=== PATIENT | female | born 1975 | race Native Hawaiian/Other Pacific Islander ===

== ENCOUNTER 2017-01-03 22:01 | Emergency (ER) | payer BC ==
[2017-01-03 23:32] LABS: Basophils % (Auto) 0.3 % (0.0-1.8); Eosinophils % (Auto) 0.3 % (0.0-4.3); Hematocrit 46.4 % (30.3-42.9); Hemoglobin 15.3 gm/dl (10.1-14.3); Mean Corpuscular HGB Conc 33 % (30-34); Mean Corpuscular Hemoglobin 30 pg (28-32); Mean Corpuscular Volume 90 fl (79-97); Platelet Count 137 K/mm3 (140-440); Red Blood Count 5.18 M/mm3 (3.65-5.03); Red Cell Distribution Width 14.1 % (13.2-15.2); White Blood Count 10.2 K/mm3 (4.5-11.0)
[2017-01-03 23:41] LABS: Anion Gap 21 mmol/L; Blood Urea Nitrogen 15 mg/dL (7-17); Calcium 9.1 mg/dL (8.4-10.2); Carbon Dioxide 21 mmol/L (22-30); Chloride 98.9 mmol/L (98-107); Glucose 142 mg/dL (65-100); Potassium 3.5 mmol/L (3.6-5.0); Sodium 137 mmol/L (137-145)
[2017-01-04 01:04] LABS: Bilirubin,Urine NEG (Negative); Blood,Urine LG (Negative); Granular Casts,Urine 14 /LPF; Ketones,Urine NEG (Negative); Leukocyte Esterase,Urine NEG (Negative); Mucus,Urine FEW /HPF; Nitrite,Urine NEG (Negative); Protein,Urine <15 mg/dL mg/dL (Negative); Urobilinogen,Urine < 2.0 mg/dL (<2.0)
[2017-01-04] MEDS ORDERED: NACL 0.9% 1000 ML 1,000 ML IV ONE (06:49)
[2017-01-04] MEDS ORDERED: TORADOL IV ONE (06:49)
[2017-01-04] MEDS ORDERED: ZOFRAN IV ONE (06:53)
--- NOTE | 2017-01-04 06:53 | Emergency Department Report ---
ED Abdominal Pain HPI - General Chief Complaint: Abdominal Pain Stated Complaint: KIDNEY STONES Time Seen by Provider: 01/04/17 06:45 Source: patient Mode of arrival: Ambulatory Limitations: Language Barrier - History of Present Illness Initial Comments: 41-year-old female here with a history of renal colic presents with right flank pain that started last night. Last kidney stone was approximately one year ago. She does not remember if she had any imaging at that time. Denies fevers chills. Has had some mild nausea. -: Sudden Location: R flank Radiation: none Migration to: no migration Severity: moderate Severity scale (0 -10): 6 Quality: aching, sharp Consistency: constant Improves With: nothing Worsens With: nothing Associated Symptoms: nausea. denies: vomiting, diarrhea - Related Data Previous Rx's Medication Instructions Recorded Last Taken Type Ciprofloxacin [Ciprofloxacin ORAL 500 mg PO Q12H #14 ml 04/23/14 Unknown Rx LIQ] oxyCODONE /ACETAMINOPHEN [Percocet 1 tab PO Q6HR PRN #18 tablet 04/23/14 Unknown Rx 5/325] oxyCODONE /ACETAMINOPHEN [Percocet 1 tab PO Q6HR PRN #25 tablet 05/27/15 Unknown Rx 5/325] HYDROcodone/APAP 5-325 [Endeavor 1 each PO Q6HR PRN #10 tablet 01/04/17 Unknown Rx 5-325 mg TAB] Ibuprofen [Motrin] 600 mg PO Q8H PRN #30 tablet 01/04/17 Unknown Rx Ondansetron [Zofran ODT TAB] 4 mg PO Q6H #14 tab.rapdis 01/04/17 Unknown Rx Tamsulosin [Flomax] 0.4 mg PO QDAY #10 cap 01/04/17 Unknown Rx Allergies Allergy/AdvReac Type Severity Reaction Status Date / Time No Known Allergies Allergy Verified 04/23/14 21:16 ED Review of Systems ROS: Stated complaint: KIDNEY STONES Other details as noted in HPI Comment: All other systems reviewed and negative Constitutional: denies: chills, fever Eyes: denies: eye pain, eye discharge, vision change ENT: denies: ear pain, throat pain Respiratory: denies: cough, shortness of breath, wheezing Cardiovascular: denies: chest pain, palpitations Endocrine: no symptoms reported Gastrointestinal: nausea. denies: abdominal pain, diarrhea Genitourinary: denies: urgency, dysuria, discharge Musculoskeletal: back pain. denies: joint swelling, arthralgia Skin: denies: rash, lesions Neurological: denies: headache, weakness, paresthesias Psychiatric: denies: anxiety, depression Hematological/Lymphatic: denies: easy bleeding, easy bruising ED Past Medical Hx - Past Medical History Previous Medical History?: Yes Hx Hypertension: Yes Hx Kidney Stones: Yes Additional medical history: High cholesterol - Surgical History Past Surgical History?: Yes Additional Surgical History: c section x3 - Family History Family history: no significant - Social History Smoking Status: Never Smoker Substance Use Type: None - Medications Home Medications: Home Medications Medication Instructions Recorded Confirmed Last Taken Type Ciprofloxacin [Ciprofloxacin ORAL 500 mg PO Q12H #14 ml 04/23/14 Unknown Rx LIQ] oxyCODONE /ACETAMINOPHEN [Percocet 1 tab PO Q6HR PRN #18 tablet 04/23/14 Unknown Rx 5/325] oxyCODONE /ACETAMINOPHEN [Percocet 1 tab PO Q6HR PRN #25 tablet 05/27/15 Unknown Rx 5/325] HYDROcodone/APAP 5-325 [Endeavor 1 each PO Q6HR PRN #10 tablet 01/04/17 Unknown Rx 5-325 mg TAB] Ibuprofen [Motrin] 600 mg PO Q8H PRN #30 tablet 01/04/17 Unknown Rx Ondansetron [Zofran ODT TAB] 4 mg PO Q6H #14 tab.rapdis 01/04/17 Unknown Rx Tamsulosin [Flomax] 0.4 mg PO QDAY #10 cap 01/04/17 Unknown Rx ED Physical Exam - General Limitations: Language Barrier General appearance: alert, in no apparent distress - Head Head exam: Present: atraumatic, normocephalic - Eye Eye exam: Present: normal appearance - ENT ENT exam: Present: mucous membranes moist - Neck Neck exam: Present: normal inspection - Respiratory Respiratory exam: Present: normal lung sounds bilaterally. Absent: respiratory distress - Cardiovascular Cardiovascular Exam: Present: regular rate, normal rhythm. Absent: systolic murmur, diastolic murmur, rubs, gallop - GI/Abdominal GI/Abdominal exam: Present: soft, normal bowel sounds - Extremities Exam Extremities exam: Present: normal inspection - Back Exam Back exam: Present: normal inspection, CVA tenderness (R) - Neurological Exam Neurological exam: Present: alert, oriented X3 - Psychiatric Psychiatric exam: Present: normal affect, normal mood - Skin Skin exam: Present: warm, dry, intact, normal color. Absent: rash ED Course Vital Signs 01/03/17 01/04/17 01/04/17 22:55 02:03 05:27 Temperature 98.3 F 98.3 F 98.9 F Pulse Rate 80 73 74 Respiratory 20 16 18 Rate Blood Pressure 179/121 156/106 175/118 Blood Pressure [Right] O2 Sat by Pulse 99 99 98 Oximetry 01/04/17 06:28 Temperature Pulse Rate 82 Respiratory 18 Rate Blood Pressure Blood Pressure 172/101 [Right] O2 Sat by Pulse 100 Oximetry ED Medical Decision Making - Lab Data Result diagrams: 01/03/17 23:02 01/03/17 23:02 Laboratory Results - last 24 hr 01/03/17 01/03/17 01/03/17 23:02 23:02 23:02 WBC 10.2 RBC 5.18 H Hgb 15.3 H Hct 46.4 H MCV 90 MCH 30 MCHC 33 RDW 14.1 Plt Count 137 L Lymph % (Auto) 14.8 Winn % (Auto) 4.0 Eos % (Auto) 0.3 Baso % (Auto) 0.3 Lymph # 1.5 Winn # 0.4 Eos # 0.0 Baso # 0.0 Seg Neutrophils % 80.6 H Seg Neutrophils # 8.2 H Sodium 137 Potassium 3.5 L Chloride 98.9 Carbon Dioxide 21 L Anion Gap 21 BUN 15 Creatinine 0.6 L Estimated GFR > 60 BUN/Creatinine Ratio 25.00 Glucose 142 H Calcium 9.1 HCG, Qual Negative Urine Color Urine Turbidity Urine pH Ur Specific [place]y Urine Protein Urine Glucose (UA) Urine Ketones Urine Blood Urine Nitrite Urine Bilirubin Urine Urobilinogen Ur Leukocyte Esterase Urine WBC (Auto) Urine RBC (Auto) U Epithel Cells (Auto) Amorphous Crystals Granular Casts Urine Mucus 01/04/17 00:12 WBC RBC Hgb Hct MCV MCH MCHC RDW Plt Count Lymph % (Auto) Winn % (Auto) Eos % (Auto) Baso % (Auto) Lymph # Winn # Eos # Baso # Seg Neutrophils % Seg Neutrophils # Sodium Potassium Chloride Carbon Dioxide Anion Gap BUN Creatinine Estimated GFR BUN/Creatinine Ratio Glucose Calcium HCG, Qual Urine Color Yellow Urine Turbidity Cloudy Urine pH 7.0 Ur Specific [place] 1.012 Urine Protein <15 mg/dl Urine Glucose (UA) Neg Urine Ketones Neg Urine Blood Lg Urine Nitrite Neg Urine Bilirubin Neg Urine Urobilinogen < 2.0 Ur Leukocyte Esterase Neg Urine WBC (Auto) 2.0 Urine RBC (Auto) 51.0 U Epithel Cells (Auto) < 1.0 Amorphous Crystals 1+ Granular Casts 14 Urine Mucus Few - Medical Decision Making 41-year-old female here with renal colic. Patient has a known history of kidney stones with significant RBCs in her urine. She is some mild CVA tenderness. She has no white count or creatinine normal. At this point given that she is a known history of do not feel she needs further imaging. Plan to treat with IV fluids Flomax and IV Toradol. Anticipate discharge. We'll have the patient follow up with urology as an outpatient. 8:03 AM - on reassessment patient has significant reduction in pain. Plan to discharge patient home. Long discussion regarding plans for follow-up. Patient will follow up with urology as an outpatient. Return for worsening fever chills nausea vomiting. Portions of this chart were dictated with dictation software. There may be dictation errors contained within this note. Critical care attestation.: If time is entered above; I have spent that time in minutes in the direct care of this critically ill patient, excluding procedure time. ED Disposition Clinical Impression: Renal colic on right side Disposition: DC-01 TO HOME OR SELFCARE Is pt being admited?: No Condition: Stable Instructions: Renal Colic (ED) Additional Instructions: Please follow-up with the urologist next week. Return for worsening pain, fever , nausea vomiting. Prescriptions: HYDROcodone/APAP 5-325 [Endeavor 5-325 mg TAB] 1 each PO Q6HR PRN #10 tablet PRN Reason: Pain Ibuprofen [Motrin] 600 mg PO Q8H PRN #30 tablet PRN Reason: Pain Ondansetron [Zofran ODT TAB] 4 mg PO Q6H #14 tab.rapdis Tamsulosin [Flomax] 0.4 mg PO QDAY #10 cap Referrals: PRIMARY CARE, [Primary Care Provider] - 3-5 Days
[2017-01-04] MEDS ORDERED: FLOMAX PO ONE (07:00)
[2017-01-04 08:35] VITALS: BP 151/92
== END 2017-01-04 08:15 | disposition home or self-care (01) ==
LOC: ED 22:01
DX: N23 Unspecified renal colic (principal); I10 Essential (primary) hypertension; E78.00 Pure hypercholesterolemia, unspecified
CPT/HCPCS: 36415; 80048; 81001; 84703; 85025; 96361; 96374; 96375; 99283; J1885; J2405; J7030